=== PATIENT | female | born 1965 | race Caucasian/White ===

== ENCOUNTER 2017-03-12 20:28 | Inpatient (IN) | payer MEDICAID, OTHER ==
[~2017-03-12] VITALS: Ht 162.6 cm; Wt 82.3 kg
[~2017-03-12 20:28] MED LIST: LEVO.125 PO; NICO14T TD; OXYC1SOL5 PO; [UNRECOGNIZED DRUG - OTHER]
[2017-03-12 20:33] VITALS: BP 164/88; PULSE 73; RESP 20; TEMP 97.8; O2SAT 88
--- NOTE | 2017-03-12 21:12 | PD ---
HPI Chief Complaint: Respiratory Distress Time Seen by Provider: 20:55 Travel History International Travel<30 days: No Contact w/Intl Traveler<30days: No Traveled to known affect area: No History of Present Illness HPI The patient is a 51 year old female who presents to the [facility] emergency department with a history of shortness of breath that she reports began a few days ago. She reports that the shortness of breath is worse with exertion. She denies any worsening with lying down. She does however report that she has a history of congestive heart failure and has been off of all of her medicines for the last month and she has not established with a new primary care doctor since an insurance change. She reports that today she began have lower extremity edema. She denies any prior history of DVT or PE. She denies any prior history of myocardial infarction. She denies having any chest pain associated with this. She reports that she's had a dry cough. She denies having any fevers. She reports that she continues to smoke a half pack of cigarettes per day. She reports that she has been diagnosed with COPD in the past. The patient denies any neck pain, abdominal pain, vomiting, diarrhea, urinary symptoms, or neurologic symptoms. [facility] Past Medical History Narrative Medical The patient's past medical history is significant for hypertension, COPD, history of bronchitis, history of congestive heart failure. Hx Anticoagulant Therapy: Yes (ASPIRIN) Arthritis: Yes Cancer: No Cardiovascular Problems: Yes (CHF) Diabetes: No Diminished Hearing: No Endocrine: No Genitourinary: No Musculoskeletal: Yes (KNEE SURGERY; RIGHT ARM) Neurologic: No Psychiatric: No Reproductive: No Respiratory: Yes (COPD) Thyroid Disease: No Tetanus Vaccination: Unknown Influenza Vaccination: Yes ?: Not Menopausal: Yes Past Surgical History Narrative Surgical The patient's past surgical history is significant for knee surgery and right shoulder surgery. Pacemaker: No Other Surgery: Yes Social History Alcohol Use: No Tobacco Use: Yes (1/2 PACK PPD SINCE 14 YEARS OLD) Substance Use: No Allergies-Medications (Allergen,Severity, Reaction): Coded Allergies: No Known Allergies (Unverified , 03/12/17) Reported Meds & Prescriptions Reported Meds & Active Scripts Active No Active Prescriptions or Reported Medications Review of Systems Except as stated in HPI: all other systems reviewed are Neg General / Constitutional: No: Fever Eyes: No: Visual changes HENT: No: Headaches Cardiovascular: Positive: Dyspnea on exertion, Edema, No: Chest Pain or Discomfort Respiratory: Positive: Cough, Shortness of Breath Gastrointestinal: No: Nausea, Vomiting, Diarrhea, Abdominal Pain Genitourinary: No: Dysuria Musculoskeletal: No: Pain Skin: No Rash Neurologic: No: Weakness, Focal Abnormalities, Change in Mentation, Slurred Speech Psychiatric: No: Depression Endocrine: No: Polydipsia Hematologic/Lymphatic: No: Easy Bruising Physical Exam Narrative General: The patient is a well-developed well-nourished female in no acute distress, initial O2 saturations on room air 88%. The patient was placed on 2 L supplemental O2. Head and Neck exam: Head is normocephalic atraumatic. Eyes: EOMI, pupils are equal round and reactive to light. Nose: Midline septum with pink mucous membranes Mouth: Dentition unremarkable. Moist mucus membranes. Posterior oropharynx is not erythematous. No tonsillar hypertrophy. Uvula midline. Airway patent. Neck: No palpable lymphadenopathy. No nuchal rigidity. No thyromegaly. Cardiovascular: Regular rate and rhythm without murmurs, gallops, or rubs. Lungs: Expiratory wheezes are audible anteriorly and posteriorly with prolonged expiratory phase of breathing. She has accessory muscle use noted. No significant conversational dyspnea. No tripoding. No paroxysmal abdominal breathing. Abdomen: Soft, without tenderness to palpation in all 4 quadrants of the abdomen. No guarding, rebound, or rigidity. Normal bowel sounds are audible. No tenderness on palpation of McBurney's point Extremities: No clubbing or cyanosis. The patient has 1+ pitting edema bilateral lower extremities. 2+ pulses in all 4 extremities. No calf tenderness on palpation. Back: No spinous process tenderness to palpation. No costovertebral angle tenderness to palpation. Neurologic Exam: Grossly nonfocal. Skin Exam: No rash noted. Intact skin that is warm and dry. Data Data Last Documented VS Vital Signs Date Time Temp Pulse Resp B/P Pulse Ox O2 Delivery O2 Flow Rate FiO2 03/12/17 23:11 69 17 123/57 98 Nasal Cannula 2 03/12/17 20:33 97.8 Orders Complete Blood Count With Diff (03/12/17 21:04) Comprehensive Metabolic Panel (03/12/17 21:04) B-Type Natriuretic Peptide (03/12/17 21:04) D-Dimer (03/12/17 21:04) Magnesium (Mg) (03/12/17 21:04) Ckmb (Isoenzyme) Profile (03/12/17 21:04) Troponin I (03/12/17 21:04) Urinalysis - C+S If Indicated (03/12/17 21:04) Iv Access Insert/Monitor (03/12/17 21:04) Electrocardiogram (03/12/17 21:04) Ecg Monitoring (03/12/17 21:04) Oximetry (03/12/17 21:04) Oxygen Administration (03/12/17 21:04) Chest, Single Ap (03/12/17 21:04) Sodium Chloride 0.9% Flush (Ns Flush) (03/12/17 21:15) Methylprednisolone So Succ Inj (Solumedr (03/12/17 21:15) Albuterol-Ipratropium Neb (Duoneb Neb) (03/12/17 21:15) CKMB (03/12/17 21:10) CKMB% (03/12/17 21:10) Ct Pulmonary Angiogram (03/12/17 22:42) Sodium Chlorid 0.9% 500 Ml Inj (Ns 500 M (03/12/17 22:45) Iohexol 350 Inj (Omnipaque 350 Inj) (03/12/17 23:27) Urine Culture (03/12/17 23:10) Labs Laboratory Tests Test 03/12/17 03/12/17 21:10 23:10 White Blood Count 7.0 TH/MM3 Red Blood Count 4.56 MIL/MM3 Hemoglobin 15.4 GM/DL Hematocrit 46.2 % Mean Corpuscular Volume 101.3 FL Mean Corpuscular Hemoglobin 33.8 PG Mean Corpuscular Hemoglobin 33.3 % Concent Red Cell Distribution Width 16.5 % Platelet Count 182 TH/MM3 Mean Platelet Volume 8.3 FL Neutrophils (%) (Auto) 65.9 % Lymphocytes (%) (Auto) 22.8 % Monocytes (%) (Auto) 8.6 % Eosinophils (%) (Auto) 2.0 % Basophils (%) (Auto) 0.7 % Neutrophils # (Auto) 4.6 TH/MM3 Lymphocytes # (Auto) 1.6 TH/MM3 Monocytes # (Auto) 0.6 TH/MM3 Eosinophils # (Auto) 0.1 TH/MM3 Basophils # (Auto) 0.0 TH/MM3 CBC Comment DIFF FINAL Differential Comment D-Dimer Quantitative (PE/DVT) 0.67 MG/L FEU Sodium Level 138 MEQ/L Potassium Level 4.1 MEQ/L Chloride Level 95 MEQ/L Carbon Dioxide Level 38.5 MEQ/L Anion Gap 5 MEQ/L Blood Urea Nitrogen 19 MG/DL Creatinine 1.23 MG/DL Estimat Glomerular Filtration 46 ML/MIN Rate Random Glucose 127 MG/DL Calcium Level 8.5 MG/DL Magnesium Level 2.0 MG/DL Total Bilirubin 0.3 MG/DL Aspartate Amino Transf 21 U/L (AST/SGOT) Alanine Aminotransferase 27 U/L (ALT/SGPT) Alkaline Phosphatase 47 U/L Total Creatine Kinase 204 U/L Creatine Kinase MB 2.3 NG/ML Creatine Kinase MB % 1.1 % Troponin I LESS THAN 0.02 NG/ML B-Type Natriuretic Peptide 20 PG/ML Total Protein 6.8 GM/DL Albumin 3.1 GM/DL Urine Color YELLOW Urine Turbidity HAZY Urine pH 6.0 Urine Specific [place] 1.028 Urine Protein 300 mg/dL Urine Glucose (UA) NEG mg/dL Urine Ketones NEG mg/dL Urine Occult Blood SMALL Urine Nitrite NEG Urine Bilirubin NEG Urine Urobilinogen 2.0 MG/DL Urine Leukocyte Esterase TRACE Urine RBC 2 /hpf Urine WBC 9 /hpf Urine Squamous Epithelial 1 /hpf Cells Urine Mucus FEW /lpf Microscopic Urinalysis Comment CULTURE INDICATED MDM Medical Decision Making Medical Screen Exam Complete: Yes Emergency Medical Condition: Yes Medical Record Reviewed: Yes Interpretation(s) Last Impressions CT Angiography 03/12/172241 Signed Impressions: Service Date/Time: Sunday, March 12, 2017 23:24 - CONCLUSION: 1. No evidence of pulmonary embolism 2. No acute pulmonary infiltrates. Armaan Mcduffie MD Chest X-Ray 03/12/172103 Signed Impressions: Service Date/Time: Sunday, March 12, 2017 21:05 - CONCLUSION: No acute disease. Jhonatan Cherry MD Differential Diagnosis COPD exacerbation, versus pneumonia, versus congestive heart failure exacerbation, versus pulmonary embolus Narrative Course During the course of the patients emergency department visit, the patients history, examination, and differential diagnosis were reviewed with the patient. The patient had IV access obtained and blood work sent for analysis. The patient was placed on a quality assurance monitor final with oximetry and blood pressure monitoring. An EKG was ordered. The patient was initially provided the patient was given Solu-Medrol 125 mg IV, DuoNeb 3. The patients laboratory studies were reviewed and remarkable for a white count of 7, hemoglobin 15.4, platelets 182 with 8.6 monocytes, CMP is remarkable for chloride of 95, CO2 38.5, BUN 19, creatinine 1.23, glucose 127, CPK 204, MB percent 1.1, troponin I less than 0.02, BNP 20, d-dimer is 0.67, therefore CTA to rule out PE was ordered. Urinalysis shows 300 protein, small blood, trace leukocyte esterase, 9 RBCs. Radiology studies were reviewed and remarkable for a chest x-ray that shows no acute abnormality, CTA shows no evidence of PE. On reevaluation, the patient has had improvement in her symptoms, is resting comfortably, wheezing has improved, however the patient's O2 saturation on room air continues to be diminished down to 86% at the lowest. The patient was placed back on supplemental nasal cannula O2. The patient will be admitted to the hospital for continued treatment of a COPD exacerbation. The patients results were discussed with the patient, including the plan of care. I explained that further testing and/ or monitoring is indicated based on the patients history, examination, and/ or laboratory findings. Therefore, I recommended admission for additional evaluation. The patient expressed understanding and was agreeable with this plan. The patient was admitted to the hospital in stable condition and sent to a bed under the care of [facility]. Physician Communication Physician Communication The patient's case will be discussed with Dr. Subramanian regarding admission. Diagnosis Primary Impression: COPD exacerbation Additional Impression: Bronchitis Admitting Information Admitting Physician Requests: Admit Scripts No Active Prescriptions or Reported Meds Elaine Steiner MD Mar 12, 2017 21:11
[2017-03-12] MEDS ORDERED: methylPREDNISolone SOD SUCC 125 MG/2 ML VIAL IVP ONE (21:15)
[2017-03-12] MEDS ORDERED: SODIUM CHLORIDE 0.9% FLUSH 10 ML FLUSH IVF PRN (21:15)
[2017-03-12] MEDS: RESP: ALBUTEROL 2.5 MG/IPRATROPIUM 0.5 MG NEB (SCH) INH ×2 (21:36→21:37)
--- NOTE | 2017-03-12 21:36 | RADRPT ---
EXAM DATE/TIME: 03/12/2017 21:05 [facility] COMPARISON: No previous studies available for comparison. INDICATIONS : Short of breath. MEDICAL HISTORY : Chronic obstructive pulmonary disease. SURGICAL HISTORY : None. ENCOUNTER: Initial ACUITY: 1 day PAIN SCORE: 0/10 LOCATION: Bilateral chest FINDINGS: Cardiomegaly and hyperinflation. No consolidation or effusion. Plate and screw fixation of the right proximal humerus. CONCLUSION: No acute disease. Jhonatan Cherry MD on March 12, 2017 at 21:34 Board Certified Radiologist. This report was verified electronically.
[2017-03-12 21:49] LABS: AUTOMATED NEUTROPHIL # 4.6 TH/MM3 (1.8-7.7); BASOPHIL % 0.7 % (0.0-2.0); EOSINOPHIL # 0.1 TH/MM3 (0-0.4); HEMATOCRIT 46.2 % (35.0-46.0); HEMO FLAGS DIFF FINAL; LYMPH % 22.8 % (9.0-44.0); LYMPHOCYTE # 1.6 TH/MM3 (1.0-4.8); MEAN CELL VOLUME 101.3 FL (80.0-100.0); MEAN CORPUSCULAR HEMOGLOBIN 33.8 PG (27.0-34.0); MEAN CORPUSCULAR HGB CONC 33.3 % (32.0-36.0); MONO % 8.6 % (0.0-8.0); NEUT % 65.9 % (16.0-70.0); PLATELET COUNT 182 TH/MM3 (150-450); RED BLOOD COUNT 4.56 MIL/MM3 (4.00-5.30); RED CELL DISTRIBUTION WIDTH 16.5 % (11.6-17.2)
[2017-03-12 22:12] LABS: ANION GAP 5 MEQ/L (5-15); AST (GOT) 21 U/L (15-37); BICARBONATE 38.5 MEQ/L (21.0-32.0); BLOOD UREA NITROGEN 19 MG/DL (7-18); CHLORIDE 95 MEQ/L (98-107); GLOMERULAR FILTRATION RATE 46 ML/MIN (>89); POTASSIUM 4.1 MEQ/L (3.5-5.1); SODIUM (NA) 138 MEQ/L (136-145)
[2017-03-12 22:16] LABS: ALKALINE PHOSPHATASE 47 U/L (45-117); ALT (GPT) 27 U/L (10-53); CREATINE KINASE 204 U/L (26-192); TOTAL BILIRUBIN ADULT 0.3 MG/DL (0.2-1.0)
[2017-03-12 22:29] LABS: CKMB 2.3 NG/ML (0.5-3.6)
[2017-03-12] MEDS ORDERED: SODIUM CHLORID 0.9% 500 ML INJ 500 ML IV ONE (22:45)
[2017-03-12 23:11] VITALS: BP 123/57; PULSE 69; RESP 17; O2SAT 98
[2017-03-12 23:27] LABS: BLOOD, URINE SMALL (NEG); COMMENT (UR) CULTURE INDICATED; CULTURE IF INDICATED CULTURE INDICATED; GLUCOSE,URINE NEG (NEG); KETONE, URINE NEG (NEG); MUCUS URINE FEW /lpf (OCC); NITRITE,URINE NEG (NEG); SQUAMOUS EPITHELIAL CELL URINE 1 /hpf (0-5); URINE COLOR YELLOW (YELLW/STRAW)
[2017-03-12] MEDS ORDERED: IOHEXOL 350 MG/ML 10 ML VIAL (for RAD DIAG) IV ONE (23:27)
--- NOTE | 2017-03-12 23:45 | RADRPT ---
EXAM DATE/TIME: 03/12/2017 23:24 [facility] COMPARISON: No previous studies available for comparison. INDICATIONS : Short of breath. IV CONTRAST: 75 cc Omnipaque 350 (iohexol) IV RADIATION DOSE: 29.10 CTDIvol (mGy) MEDICAL HISTORY : Chronic obstructive pulmonary disease. Cardiovascular disease SURGICAL HISTORY : Right shoulder surgery. ENCOUNTER: Initial ACUITY: 4 - 6 days PAIN SCALE: 0/10 LOCATION: chest TECHNIQUE: Volumetric scanning of the chest was performed using a pulmonary embolism protocol MIP images were re constructed. Using automated exposure control and adjustment of the mA and/or kV according to patien t size, radiation dose was kept as low as reasonably achievable to obtain optimal diagnostic quality images. FINDINGS: PULMONARY ARTERIES: No filling defects are seen in the pulmonary arteries through the segmental level. LUNGS: There is no consolidation or pneumothorax . No concerning pulmonary nodule is visualized. There is a small bulla in the left upper lung. PLEURAE: There is no pleural thickening or pleural effusion. MEDIASTINUM: There is good visualization of the great vessels of the middle mediastinum. No evidence of mediastin al or hilar adenopathy/mass. MUSCULOSKELETAL: Within normal limits for patient age. MISCELLANEOUS: The visualized upper abdominal organs demonstrate no acute abnormality. CONCLUSION: 1. No evidence of pulmonary embolism 2. No acute pulmonary infiltrates. Armaan Mcduffie MD on March 12, 2017 at 23:43 Board Certified Radiologist. This report was verified electronically.
[2017-03-13] VITALS (10 sets, daily range): BP systolic 119–133; BP diastolic 60–71; PULSE 68–84; RESP 13–20; TEMP 97.7–98.6; O2SAT 92–97
[2017-03-13] MEDS ORDERED: RESP: ALBUTEROL 2.5 MG/IPRATROPIUM 0.5 MG NEB (PRN) NEB (01:00)
[2017-03-13] MEDS ORDERED: NALOXONE HCL 0.4 MG/ML AMP IV PRN (01:00)
[2017-03-13] MEDS ORDERED: SODIUM CHLORIDE 0.9% FLUSH 10 ML FLUSH IV FLUSH PRN (01:00)
--- NOTE | 2017-03-13 03:02 | HHI.HP ---
HPI Service [facility] Primary Care Physician No Primary Care Physician Admission Diagnosis copd exacerbation, hypoxia on room air Diagnoses: Chief Complaint: shortness of breath Travel History International Travel<30 Days: No Contact w/Intl Traveler <30 Da: No Traveled to Known Affected Are: No History of Present Illness The patient is a 51 year old female patient who denies prior medical history. In review of prior charting done, history of COPD as well as CHF, the patient denies either. Patient denies using home oxygen and nebulizer treatments. Patient presents to the [facility] emergency department for evaluation of shortness of breath. Patient reports the shortness of breath times one day. She reports that the shortness of breath is worse with exertion. She denies any worsening with lying down. Patient reported to the ER provider that she has been off of all of her medicines for the last month and she has not established with a new primary care doctor since an insurance change. Patient denies denies having any chest pain, cough, fevers, chills, nausea/ vomiting/diarrhea/constipation or dysuria She reports that she continues to smoke a half pack of cigarettes per day. Review of Systems ROS Limitations: Poor Historian Except as stated in HPI: all other systems reviewed are Neg Past Family Social History Past Medical History COPD per record patient denies, CHF per record although patient denies Past Surgical History right knee surgery and right shoulder surgery Reported Medications Denies home medications on a daily basis Allergies: Coded Allergies: No Known Allergies (Unverified , 03/12/17) Active Ordered Medications Current Medications Medications (Trade) Dose Ordered Sig/Robinson Route Start Time Stop Time Status Last Admin (NS Flush) 2 ml UNSCH PRN IV FLUSH 03/13/17 01:00 (NS Flush) 2 ml BID IV FLUSH 03/13/17 09:00 (Narcan Inj) 0.4 mg UNSCH PRN IV 03/13/17 01:00 Family History Denies family medical history including CAD, CVA, diabetes, thyroid disorder COPD or cancer Social History smokes 0.5 PPD since age 14 denies ETOH use or illicit drug use Physical Exam Vital Signs Vital Signs Date Time Temp Pulse Resp B/P Pulse Ox O2 Delivery O2 Flow Rate FiO2 03/13/17 02:46 68 18 121/68 93 Nasal Cannula 4 03/13/17 01:12 71 13 121/69 92 Nasal Cannula 4 03/12/17 23:11 69 17 123/57 98 Nasal Cannula 2 03/12/17 20:47 78 19 94 Nasal Cannula 2 03/12/17 20:33 97.8 73 20 164/88 88 Room Air Physical Exam GENERAL: This is an obese, well-developed patient, in no apparent distress. SKIN: No rashes, ecchymoses or lesions. Cool and dry. HEAD: Atraumatic. Normocephalic. No temporal or scalp tenderness. EYES: Extraocular motions intact. No scleral icterus. No injection or drainage. CARDIOVASCULAR: Regular rate and rhythm without murmurs, gallops, or rubs. RESPIRATORY: Clear to auscultation. Breath sounds equal bilaterally. No wheezes , rales, or rhonchi. GASTROINTESTINAL: Abdomen soft, non-tender, nondistended. No hepato-splenomegaly , or palpable masses. No guarding. MUSCULOSKELETAL: Extremities without clubbing, cyanosis, or edema. No joint tenderness, effusion, or edema noted. No calf tenderness. Negative Homans sign bilaterally. NEUROLOGICAL: Awake and alert.Motor and sensory grossly within normal limits. 4 out of 5 muscle strength in all muscle groups. Normal speech. Laboratory Laboratory Tests Test 03/12/17 03/12/17 21:10 23:10 White Blood Count 7.0 Red Blood Count 4.56 Hemoglobin 15.4 Hematocrit 46.2 Mean Corpuscular Volume 101.3 Mean Corpuscular Hemoglobin 33.8 Mean Corpuscular Hemoglobin 33.3 Concent Red Cell Distribution Width 16.5 Platelet Count 182 Mean Platelet Volume 8.3 Neutrophils (%) (Auto) 65.9 Lymphocytes (%) (Auto) 22.8 Monocytes (%) (Auto) 8.6 Eosinophils (%) (Auto) 2.0 Basophils (%) (Auto) 0.7 Neutrophils # (Auto) 4.6 Lymphocytes # (Auto) 1.6 Monocytes # (Auto) 0.6 Eosinophils # (Auto) 0.1 Basophils # (Auto) 0.0 CBC Comment DIFF FINAL Differential Comment D-Dimer Quantitative (PE/DVT) 0.67 Sodium Level 138 Potassium Level 4.1 Chloride Level 95 Carbon Dioxide Level 38.5 Anion Gap 5 Blood Urea Nitrogen 19 Creatinine 1.23 Estimat Glomerular Filtration 46 Rate Random Glucose 127 Calcium Level 8.5 Magnesium Level 2.0 Total Bilirubin 0.3 Aspartate Amino Transf 21 (AST/SGOT) Alanine Aminotransferase 27 (ALT/SGPT) Alkaline Phosphatase 47 Total Creatine Kinase 204 Creatine Kinase MB 2.3 Creatine Kinase MB % 1.1 Troponin I LESS THAN 0.02 B-Type Natriuretic Peptide 20 Total Protein 6.8 Albumin 3.1 Urine Color YELLOW Urine Turbidity HAZY Urine pH 6.0 Urine Specific [place] 1.028 Urine Protein 300 Urine Glucose (UA) NEG Urine Ketones NEG Urine Occult Blood SMALL Urine Nitrite NEG Urine Bilirubin NEG Urine Urobilinogen 2.0 Urine Leukocyte Esterase TRACE Urine RBC 2 Urine WBC 9 Urine Squamous Epithelial 1 Cells Urine Mucus FEW Microscopic Urinalysis Comment CULTURE INDICATED Date/Time Procedure Status Source Growth 03/12/17 23:10 Urine Culture Worksheet Urine Clean Catch Pending Result Diagram: 03/12/17210903/12/172109 Imaging Last Impressions CT Angiography 03/12/172241 Signed Impressions: Service Date/Time: Sunday, March 12, 2017 23:24 - CONCLUSION: 1. No evidence of pulmonary embolism 2. No acute pulmonary infiltrates. Armaan Mcduffie MD Chest X-Ray 03/12/172103 Signed Impressions: Service Date/Time: Sunday, March 12, 2017 21:05 - CONCLUSION: No acute disease. Jhonatan Cherry MD Assessment and Plan Problem List: (1) COPD exacerbation ICD Code: J44.1 Status: Acute (2) Hypoxia ICD Code: R09.02 Status: Acute Assessment and Plan The patient is a 51 year old female patient who denies prior medical history. In review of prior charting done, history of COPD as well as CHF, the patient denies either. Patient denies using home oxygen and nebulizer treatments. Patient presents to the [facility] emergency department for evaluation of shortness of breath. Patient reports the shortness of breath times one day. Hypoxia- 88% on room air Acute on chronic COPD exacerbation Solu-Medrol 125 mg IV x 1 in ER Do nebs every 6 hours scheduled and every 2 hours when necessary Patient will likely need nebulizer treatments at discharge consult case management for assistance Possible sleep apnea recommend outpatient pulmonology evaluation and follow up D-dimer elevated 0.67 CT angiogram chest reviewed and negative for pulmonary embolism tobacco abuse- counselled encouraged to abstain DVT prophylaxis with Lovenox Discussed with the ER provider, nursing and patient Written by Liana Ruiz, acting as scribe for Dr. Subramanian on 03/13/17 at 03: 14. This note was transcribed by scribe [Liana Ruiz]. I, Dr. Cathy Subramanian personally performed the history, physical exam, and medical decision making; and confirmed the accuracy of the information in the transcribed note. Authenticated by Dr. Cathy Sburamanian on 03/13/17 at 03:14. Liana Ruiz Mar 13, 2017 03:02 Cathy Subramanian MD Mar 13, 2017 07:00
[2017-03-13] MEDS: RESP: ALBUTEROL 2.5 MG/IPRATROPIUM 0.5 MG NEB (SCH) NEB ×4 (03:03→21:33)
--- NOTE | 2017-03-13 08:45 | EKG ---
Date Performed: 03/12/2017 Time Performed: 21:23:12 PTAGE: 51 years EKG: Sinus rhythm NONSPECIFIC T-WAVE ABNORMALITY ABNORMAL ECG PREVIOUS TRACING : 03/12/2015 22.49 No significant change from previous tracing noted. DOCTOR: Robi Russo Interpretating Date/Time 03/13/2017 08:44:29
[2017-03-13] MEDS: ENOXAPARIN SODIUM 40 MG/0.4 ML SYRINGE SQ SCH (09:34)
[2017-03-13] MEDS: SODIUM CHLORIDE 0.9% FLUSH 10 ML FLUSH IV FLUSH SCH ×2 (09:36→22:38)
[2017-03-13] MEDS: LEVOTHYROXINE SODIUM 50 MCG TAB PO SCH (12:25)
[2017-03-13] MEDS ORDERED: NEBULIZER1 MI1 (14:23)
[2017-03-13] MEDS ORDERED: ALBUAER3 INH (14:23)
[2017-03-13] MEDS ORDERED: IPRASOL INH (14:23)
--- NOTE | 2017-03-13 14:31 | HHI.PR ---
Subjective Remarks Follow-up for COPD exacerbation. The patient states that she's breathing much better currently and has no more shortness of breath. However, she is currently on 4 L O2, not on oxygen at home. She is out of her medications for 1 month. She states she was previously on rescue inhaler, blood pressure medications, Lasix. She does recall being on thyroid medication, unknown dose. She does continue to smoke. Objective Vitals Vital Signs Date Time Temp Pulse Resp B/P Pulse Ox O2 Delivery O2 Flow Rate FiO2 03/13/17 12:13 98.4 84 18 121/61 97 03/13/17 09:06 92 Nasal Cannula 4.00 03/13/17 07:17 97.7 72 18 133/71 96 03/13/17 04:32 98.6 73 20 121/64 94 03/13/17 03:04 93 Nasal Cannula 3.00 03/13/17 02:46 68 18 121/68 93 Nasal Cannula 4 03/13/17 01:12 71 13 121/69 92 Nasal Cannula 4 03/12/17 23:11 69 17 123/57 98 Nasal Cannula 2 03/12/17 20:47 78 19 94 Nasal Cannula 2 03/12/17 20:33 97.8 73 20 164/88 88 Room Air I/O 03/12/17 03/12/17 03/12/17 03/13/17 03/13/17 03/13/17 07:00 15:00 23:00 07:00 15:00 23:00 Intake Total 200 ml Balance 200 ml Intake Oral 200 ml Result Diagram: 03/12/17210903/12/172109 Imaging Last Impressions CT Angiography 03/12/172 Signed Impressions: Service Date/Time: Sunday, March 12, 2017 23:24 - CONCLUSION: 1. No evidence of pulmonary embolism 2. No acute pulmonary infiltrates. Armaan Mcduffie MD Chest X-Ray 03/12/172103 Signed Impressions: Service Date/Time: Sunday, March 12, 2017 21:05 - CONCLUSION: No acute disease. Jhonatan Cherry MD Objective Remarks GENERAL: Well-developed well-nourished. In no acute distress. Comfortable on 4 L O2. SKIN: Warm and dry. No lesions noted. HEENT: Normocephalic. Pupils equal and round. Mucous membranes pink and moist. CARDIOVASCULAR: Regular rate and rhythm. No murmur appreciated. RESPIRATORY: No accessory muscle use. And expiratory wheezing bilaterally. GASTROINTESTINAL: Abdomen soft, non-tender, nondistended. Bowel sounds x4. MUSCULOSKELETAL: No obvious deformities. No clubbing or cyanosis. No edema. NEUROLOGICAL: Awake and alert. No focal neurological deficits. Moves upper and lower extremities spontaneously. Normal speech. PSYCHIATRIC: Appropriate mood and affect; insight and judgment normal. A/P Problem List: (1) COPD exacerbation ICD Code: J44.1 Status: Acute (2) Hypoxia ICD Code: R09.02 Status: Acute Assessment and Plan The patient is a 51 year old female patient who denies prior medical history. In review of prior charting done, history of COPD as well as CHF, the patient denies either. Patient denies using home oxygen and nebulizer treatments. Patient presented to the [facility] emergency department for evaluation of shortness of breath. Patient reports the shortness of breath times one day. Acute respiratory failure with Hypoxia- 88% on room air Acute exacerbation of chronic COPD Tobacco abuse Imaging reviewed: Chest x-ray with no acute process. Pulmonary angiogram with no PE or pulmonary infiltrates. Labs reviewed: Mildly elevated d-dimer at 0.67. BNP 20. IV Solu-Medrol Scheduled and as needed nebs Azithromycin Supplemental O2 as needed, titrate as tolerated Counseled on tobacco cessation Patient will likely need nebulizer treatments at discharge, consulted case management for assistance Hypothyroidism: Noncompliant with medications. TSH 61.8. Start levothyroxine at 50 g daily. Abnormal UA: UA borderline, rule out infection. No specific urinary complaints. Follow-up urine culture. JERED: Creatinine 1.23, previously 0.7 in 2014. Gentle IVF. Follow-up BMP. DVT prophylaxis with Lovenox Discharge Planning Patient is clinically improved, however still requiring a lot of oxygen. Possible walk test in the a.m. Suraj Contreras Mar 13, 2017 14:31 Deepali Mireles MD Mar 13, 2017 15:50
[2017-03-13] MEDS ORDERED: SODIUM CHLOR 0.9% 1000 ML INJ 1,000 ML IV SCH (15:00)
[2017-03-13] MEDS: AZITHROMYCIN 250 MG TAB PO SCH (17:15)
[2017-03-13] MEDS: methylPREDNISolone SOD SUCC 40 MG/1 ML VIAL IV PUSH SCH ×2 (17:15→22:39)
[2017-03-14] VITALS (11 sets, daily range): BP systolic 114–138; BP diastolic 55–78; PULSE 70–92; RESP 18–21; TEMP 97.8–99.3; O2SAT 92–97
[2017-03-14 05:45] LABS: AUTOMATED NEUTROPHIL # 9.6 TH/MM3 (1.8-7.7); BASOPHIL % 0.5 % (0.0-2.0); EOSINOPHIL % 0.1 % (0.0-4.0); HEMATOCRIT 48.3 % (35.0-46.0); LYMPH % 4.7 % (9.0-44.0); LYMPHOCYTE # 0.5 TH/MM3 (1.0-4.8); MEAN CELL VOLUME 101.1 FL (80.0-100.0); MEAN CORPUSCULAR HEMOGLOBIN 34.3 PG (27.0-34.0); MEAN CORPUSCULAR HGB CONC 33.9 % (32.0-36.0); MONO % 1.6 % (0.0-8.0); NEUT % 93.1 % (16.0-70.0); PLATELET COUNT 179 TH/MM3 (150-450); RED BLOOD COUNT 4.78 MIL/MM3 (4.00-5.30); RED CELL DISTRIBUTION WIDTH 16.5 % (11.6-17.2); WHITE BLOOD COUNT 10.3 TH/MM3 (4.0-11.0)
[2017-03-14 05:49] LABS: HEMO FLAGS AUTO DIFF
[2017-03-14] MEDS: methylPREDNISolone SOD SUCC 40 MG/1 ML VIAL IV PUSH SCH ×3 (05:49→20:14)
[2017-03-14] MEDS: LEVOTHYROXINE SODIUM 50 MCG TAB PO SCH (05:49)
[2017-03-14 05:53] LABS: BICARBONATE 36.7 MEQ/L (21.0-32.0); POTASSIUM 4.8 MEQ/L (3.5-5.1)
[2017-03-14] MEDS: RESP: ALBUTEROL 2.5 MG/IPRATROPIUM 0.5 MG NEB (SCH) NEB ×3 (07:24→20:12)
[2017-03-14 07:36] LABS: BANDS 3 % (0-6); METAMYELOCYTES 1 % (0-1); MYELOCYTES 1 % (0-0); NEUTROPHIL # MANUAL DIFF 9.6 TH/MM3 (1.8-7.7); PLATELET ESTIMATE SMEAR NORMAL (NORMAL); POLYS (SEG NEUTROPHILS) 88 % (16-70); SCAN/DIFF FINAL DIFF MANUAL; WBC DIFF SAMPLE 100
[2017-03-14 07:37] LABS: PLATELET MORPHOLOGY ENLARGED (NORMAL)
[2017-03-14] MEDS: SODIUM CHLORIDE 0.9% FLUSH 10 ML FLUSH IV FLUSH SCH ×2 (09:14→20:15)
[2017-03-14] MEDS: AZITHROMYCIN 250 MG TAB PO SCH (09:14)
[2017-03-14] MEDS: ENOXAPARIN SODIUM 40 MG/0.4 ML SYRINGE SQ SCH (09:15)
--- NOTE | 2017-03-14 10:04 | HHI.PR ---
Subjective Remarks Follow-up for COPD exacerbation. The patient feels good today. She denies any shortness of breath or wheezing. She states she has been able to ambulate to the restroom without any shortness of breath. She denies any chest pain, nausea , vomiting. Tolerating diet. However, she is on 4 L of oxygen and not on any oxygen at home. Objective Vitals Vital Signs Date Time Temp Pulse Resp B/P Pulse Ox O2 Delivery O2 Flow Rate FiO2 03/14/17 08:00 97.9 72 21 120/73 97 03/14/17 07:44 92 Nasal Cannula 4.00 03/14/17 04:40 70 18 127/75 93 03/14/17 00:23 98.3 92 20 119/69 92 03/13/17 21:37 92 Nasal Cannula 4.00 03/13/17 21:30 73 03/13/17 19:28 98.3 74 20 128/62 92 03/13/17 12:13 98.4 84 18 121/61 97 I/O 03/13/17 03/13/17 03/13/17 03/14/17 03/14/17 03/14/17 07:00 15:00 23:00 07:00 15:00 23:00 Intake Total 200 ml Balance 200 ml Intake Oral 200 ml # Voids 1 Result Diagram: 03/14/17 0504 03/14/17 [address] Angiography 03/12/172 Signed Impressions: Service Date/Time: Sunday, March 12, 2017 23:24 - CONCLUSION: 1. No evidence of pulmonary embolism 2. No acute pulmonary infiltrates. Armaan Mcduffie MD Chest X-Ray 03/12/172103 Signed Impressions: Service Date/Time: Sunday, March 12, 2017 21:05 - CONCLUSION: No acute disease. Jhonatan Cherry MD Objective Remarks GENERAL: Well-developed well-nourished. In no acute distress. Comfortable on 4 L O2. SKIN: Warm and dry. No lesions noted. HEENT: Normocephalic. Pupils equal and round. Mucous membranes pink and moist. CARDIOVASCULAR: Regular rate and rhythm. No murmur appreciated. RESPIRATORY: No accessory muscle use. Expiratory wheezing bilaterally. GASTROINTESTINAL: Abdomen soft, non-tender, nondistended. Bowel sounds x4. MUSCULOSKELETAL: No obvious deformities. No clubbing or cyanosis. No edema. NEUROLOGICAL: Awake and alert. No focal neurological deficits. Moves upper and lower extremities spontaneously. Normal speech. PSYCHIATRIC: Appropriate mood and affect; insight and judgment normal. A/P Problem List: (1) COPD exacerbation ICD Code: J44.1 Status: Acute (2) Hypoxia ICD Code: R09.02 Status: Acute (3) COPD (chronic obstructive pulmonary disease) ICD Code: J44.9 Status: Acute Assessment and Plan The patient is a 51 year old female patient who denies prior medical history. In review of prior charting done, history of COPD as well as CHF, the patient denies either. Patient denies using home oxygen and nebulizer treatments. Patient presented to the [facility] emergency department for evaluation of shortness of breath. Patient reports the shortness of breath times one day. Acute respiratory failure with Hypoxia- 88% on room air Acute exacerbation of chronic COPD Tobacco abuse Imaging reviewed: Chest x-ray with no acute process. Pulmonary angiogram with no PE or pulmonary infiltrates. Labs reviewed: Mildly elevated d-dimer at 0.67. BNP 20. IV Solu-Medrol, taper as tolerated Scheduled and as needed nebs Azithromycin Supplemental O2 as needed, titrate as tolerated Counseled on tobacco cessation Patient will likely need nebulizer and oxygen at discharge, consulted case management for assistance O2 walk test Start Symbicort Hypothyroidism: Noncompliant with medications. TSH 61.8. Started levothyroxine at 50 g daily. Abnormal UA: UA borderline, rule out infection. No specific urinary complaints. Follow-up urine culture. JERED: Creatinine 1.23, previously 0.7 in 2014. Gentle IVF. Follow-up creatinine improved, DC IVF. DVT prophylaxis with Lovenox Written by Suraj Contreras, acting as scribe for Dr. Mireles on 03/14/17 at 10:04. This note was transcribed by [email or web address] RAM. I, Dr. Deepali Mireles personally performed the history, physical exam, and medical decision making; and confirmed the accuracy of the information in the transcribed note. Authenticated by Dr. Deepali Mireles on 03/14/17 at 10:04. Discharge Planning Patient met inpatient criteria on 03/13/17. Awaiting further clinical improvement, not ready for discharge yet. Problem Qualifiers (1) COPD (chronic obstructive pulmonary disease): Qualified Code: J44.9 - Chronic obstructive pulmonary disease, unspecified COPD type Suraj Contreras Mar 14, 2017 10:04 Deepali Mireles MD Mar 14, 2017 14:40
[2017-03-14] MEDS ORDERED: OXYGENTANK NAS.CANULA ×2 (12:02→14:18)
[2017-03-14] MEDS: BUDESONIDE-FORMOTEROL 80/4.5 MCG INHALER INH SCH ×2 (12:54→21:00)
[2017-03-15] VITALS (14 sets, daily range): BP systolic 123–128; BP diastolic 74–85; PULSE 64–74; RESP 20; TEMP 98.2–98.7; O2SAT 93–96
[2017-03-15] MEDS: LEVOTHYROXINE SODIUM 50 MCG TAB PO SCH (05:37)
[2017-03-15] MEDS: methylPREDNISolone SOD SUCC 40 MG/1 ML VIAL IV PUSH SCH ×2 (05:38→14:46)
--- NOTE | 2017-03-15 07:18 | HHI.PR ---
Subjective Remarks Feels much better. No much wheezing. No n/v/d/c. No cough. Patient needs O2 at home, failed O2 test/ CM following for DC plan Objective Vitals Vital Signs Date Time Temp Pulse Resp B/P Pulse Ox O2 Delivery O2 Flow Rate FiO2 03/15/17 05:06 67 03/15/17 04:01 98.3 69 20 123/74 96 03/15/17 00:01 98.2 72 20 127/80 94 03/14/17 23:01 70 03/14/17 20:01 98.1 76 20 138/73 95 03/14/17 19:41 92 Nasal Cannula 2.00 03/14/17 19:01 74 03/14/17 17:50 97.8 74 19 126/78 93 03/14/17 15:22 99.3 74 18 114/58 93 03/14/17 11:59 99.0 74 20 115/55 95 03/14/17 08:00 97.9 72 21 120/73 97 03/14/17 07:44 92 Nasal Cannula 4.00 I/O 03/14/17 03/14/17 03/14/17 03/15/17 03/15/17 03/15/17 07:00 15:00 23:00 07:00 15:00 23:00 Intake Total 120 ml 667 ml Balance 120 ml 667 ml Intake Oral 120 ml 480 ml IV Total 187 ml # Voids 2 2 # Bowel Movements 0 0 Result Diagram: 03/14/17 0504 03/14/17 [address] Angiography 03/12/17 2242 Signed Impressions: Service Date/Time: Sunday, March 12, 2017 23:24 - CONCLUSION: 1. No evidence of pulmonary embolism 2. No acute pulmonary infiltrates. Armaan Mcduffie MD Chest X-Ray 03/12/172103 Signed Impressions: Service Date/Time: Sunday, March 12, 2017 21:05 - CONCLUSION: No acute disease. Jhonatan Cherry MD Objective Remarks GENERAL: Well-developed well-nourished. Appears in not acute distress. SKIN: Warm and dry. No lesions noted. HEENT: Normocephalic. Pupils equal and round. Mucous membranes pink and moist. CARDIOVASCULAR: Regular rate and rhythm. No murmur appreciated. RESPIRATORY: No accessory muscle use. Expiratory wheezing bilaterally improved. GASTROINTESTINAL: Abdomen soft, non-tender, nondistended. Bowel sounds x4. MUSCULOSKELETAL: No obvious deformities. No clubbing or cyanosis. No edema. NEUROLOGICAL: Awake and alert. No focal neurological deficits. Moves upper and lower extremities spontaneously. Normal speech. PSYCHIATRIC: Appropriate mood and affect; insight and judgment normal. A/P Problem List: (1) COPD exacerbation ICD Code: J44.1 Status: Acute (2) Hypoxia ICD Code: R09.02 Status: Acute (3) COPD (chronic obstructive pulmonary disease) ICD Code: J44.9 Status: Acute Assessment and Plan The patient is a 51 year old female patient who denies prior medical history. In review of prior charting done, history of COPD as well as CHF, the patient denies either. Patient denies using home oxygen and nebulizer treatments. Patient presented to the [facility] emergency department for evaluation of shortness of breath. Patient reports the shortness of breath times one day. Acute respiratory failure with Hypoxia- 88% on room air Acute exacerbation of chronic COPD Tobacco abuse Imaging reviewed: Chest x-ray with no acute process. Pulmonary angiogram with no PE or pulmonary infiltrates. Labs reviewed: Mildly elevated d-dimer at 0.67. BNP 20. IV Solu-Medrol, taper as tolerated Scheduled and as needed nebs Azithromycin Supplemental O2 as needed, titrate as tolerated Counseled on tobacco cessation Patient will likely need nebulizer and oxygen at discharge, consulted case management for assistance O2 walk test Start Symbicort Hypothyroidism: Noncompliant with medications. TSH 61.8. Started levothyroxine at 50 g daily. Abnormal UA: UA borderline, rule out infection. No specific urinary complaints. Follow-up urine culture. JERED: Creatinine 1.23, previously 0.7 in 2015. Gentle IVF. Follow-up creatinine improved, DC IVF. DVT prophylaxis with Lovenox DC plan: Patient is clinically improved, however still requiring oxygen. Walk test failed, require O2 at home, CM following for DC plan Problem Qualifiers (1) COPD (chronic obstructive pulmonary disease): Qualified Code: J44.9 - Chronic obstructive pulmonary disease, unspecified COPD type Deepali Mireles MD Mar 15, 2017 07:18
[2017-03-15] MEDS ORDERED: OXYGENTANK NAS.CANULA (07:46)
[2017-03-15] MEDS ORDERED: PRED10PA PO (07:46)
--- NOTE | 2017-03-15 07:46 | HHI.DS ---
Discharge Summary Admission Date Mar 14, 2017 at 10:01 Discharge Date: Mar 15, 2017 Admitting Diagnosis copd exacerbation, hypoxia on room air (1) COPD exacerbation ICD Code: J44.1 (2) Hypoxia ICD Code: R09.02 Diagnosis: Principal Procedures none Brief History - From Admission The patient is a 51 year old female patient who denies prior medical history. In review of prior charting done, history of COPD as well as CHF, the patient denies either. Patient denies using home oxygen and nebulizer treatments. Patient presents to the [facility] emergency department for evaluation of shortness of breath. Patient reports the shortness of breath times one day. She reports that the shortness of breath is worse with exertion. She denies any worsening with lying down. Patient reported to the ER provider that she has been off of all of her medicines for the last month and she has not established with a new primary care doctor since an insurance change. Patient denies denies having any chest pain, cough, fevers, chills, nausea/ vomiting/diarrhea/constipation or dysuria She reports that she continues to smoke a half pack of cigarettes per day. CBC/BMP: 03/14/17 0504 03/14/17 0504 Significant Findings Laboratory Tests Test 03/12/17 03/12/17 03/13/17 03/14/17 21:10 23:10 08:45 05:04 Hemoglobin 15.4 GM/DL 16.4 GM/DL (11.6-15.3) (11.6-15.3) Hematocrit 46.2 % 48.3 % (35.0-46.0) (35.0-46.0) Mean Corpuscular Volume 101.3 FL 101.1 FL (80.0-100.0) (80.0-100.0) Monocytes (%) (Auto) 8.6 % (0.0-8.0) D-Dimer Quantitative (PE/DVT) 0.67 MG/L FEU (0.00-0.50) Chloride Level 95 MEQ/L 95 MEQ/L (98-107) (98-107) Carbon Dioxide Level 38.5 MEQ/L 36.7 MEQ/L (21.0-32.0) (21.0-32.0) Blood Urea Nitrogen 19 MG/DL (7-18) Creatinine 1.23 MG/DL (0.50-1.00) Estimat Glomerular Filtration 46 ML/MIN (>89) 58 ML/MIN (>89) Rate Random Glucose 127 MG/DL 127 MG/DL (74-106) (74-106) Total Creatine Kinase 204 U/L (26-192) Troponin I LESS THAN 0.02 NG/ML (0.02-0.05) Albumin 3.1 GM/DL (3.4-5.0) Urine Turbidity HAZY (CLEAR) Urine Protein 300 mg/dL (NEG-TRACE) Urine Occult Blood SMALL (NEG) Urine Leukocyte Esterase TRACE (NEG) Urine WBC 9 /hpf (0-5) Urine Mucus FEW /lpf (OCC) Thyroid Stimulating Hormone 61.800 uIU/ML 3rd Gen (0.358-3.740) Mean Corpuscular Hemoglobin 34.3 PG (27.0-34.0) Neutrophils (%) (Auto) 93.1 % (16.0-70.0) Lymphocytes (%) (Auto) 4.7 % (9.0-44.0) Neutrophils # (Auto) 9.6 TH/MM3 (1.8-7.7) Lymphocytes # (Auto) 0.5 TH/MM3 (1.0-4.8) Neutrophils % (Manual) 88 % (16-70) Lymphocytes % 4 % (9-44) Neutrophils # (Manual) 9.6 TH/MM3 (1.8-7.7) Myelocytes 1 % (0-0) Platelet Morphology Comment ENLARGED (NORMAL) Anion Gap 4 MEQ/L (5-15) Imaging Last Impressions CT Angiography 03/12/172 Signed Impressions: Service Date/Time: Sunday, March 12, 2017 23:24 - CONCLUSION: 1. No evidence of pulmonary embolism 2. No acute pulmonary infiltrates. Armaan Mcduffie MD Chest X-Ray 03/12/174 Signed Impressions: Service Date/Time: Sunday, March 12, 2017 21:05 - CONCLUSION: No acute disease. Jhonatan Cherry MD PE at Discharge GENERAL: Well-developed well-nourished. Appears in not acute distress. SKIN: Warm and dry. No lesions noted. HEENT: Normocephalic. Pupils equal and round. Mucous membranes pink and moist. CARDIOVASCULAR: Regular rate and rhythm. No murmur appreciated. RESPIRATORY: No accessory muscle use. Expiratory wheezing bilaterally improved. GASTROINTESTINAL: Abdomen soft, non-tender, nondistended. Bowel sounds x4. MUSCULOSKELETAL: No obvious deformities. No clubbing or cyanosis. No edema. NEUROLOGICAL: Awake and alert. No focal neurological deficits. Moves upper and lower extremities spontaneously. Normal speech. PSYCHIATRIC: Appropriate mood and affect; insight and judgment normal. Hospital Course The patient is a 51 year old female patient who denies prior medical history. In review of prior charting done, history of COPD as well as CHF, the patient denies either. Patient denies using home oxygen and nebulizer treatments. Patient presented to the [facility] emergency department for evaluation of shortness of breath. Patient reports the shortness of breath times one day. Acute respiratory failure with Hypoxia- 88% on room air Acute exacerbation of chronic COPD Tobacco abuse Imaging reviewed: Chest x-ray with no acute process. Pulmonary angiogram with no PE or pulmonary infiltrates. Labs reviewed: Mildly elevated d-dimer at 0.67. BNP 20. IV Solu-Medrol, taper as tolerated Scheduled and as needed nebs Azithromycin Supplemental O2 as needed, titrate as tolerated Counseled on tobacco cessation Patient will likely need nebulizer and oxygen at discharge, consulted case management for assistance O2 walk test Start Symbicort Hypothyroidism: Noncompliant with medications. TSH 61.8. Started levothyroxine at 50 g daily. Abnormal UA: UA borderline, rule out infection. No specific urinary complaints. Follow-up urine culture. JERED: Creatinine 1.23, previously 0.7 in 2015. Gentle IVF. Follow-up creatinine improved, DC IVF. DVT prophylaxis with Lovenox DC plan: Patient is clinically improved, however still requiring oxygen. Failed O2 walking test, require O2 at home, CM following for DC plan. Improving, DC home in stable condition to followup as OP with PCP and consultants. Pt Condition on Discharge: Stable Discharge Disposition: Disch w/ Home Health Serv Discharge Time: > 30 minutes Discharge Instructions DIET: Follow Instructions for: Heart Healthy Diet Activities you can perform: Regular-No Restrictions Follow up Referrals: PCP Follow-up - 3-5 Days Pulmonology - 2 Weeks New Medications: Albuterol 8.5 GM Inh (Proair Hfa 8.5 GM Inh) 90 Mcg/Act Aer 2 PUFF INH Q4-6H 108 mcg/actuation PRN SHORTNESS OF BREATH #1 Ref 0 INHALER Ipratropium-Albuterol Neb (Duoneb) 0.5-2.5 Mg/3 Ml Neb 1 NEBULE INH Q6HR NEB Breathing Treatment #120 Ref 0 NEBULE Nebulizer (Nebulizer) 1 Mis Mis 1 EA .ROUTE DIRECTED Breathing Treatment #1 Ref 0 EA Oxygen tank (Oxygen tank) 1 Ea Tank 2 LITER JORGE.CANULA CONTINUOUS Oxygen Concentrator Portable Gaseous 2 L/min via Nasal Cannula Continuous For 99 months HYPOXEMIA PREVENTION #2 CYLINDER Prednisone (21) 10 mg tab Dose Pack (Prednisone (21) 10 mg tab Dose Pack) 10 Mg Pack 10 MG PO DIRECTED Inflammation #1 Ref 0 DSPK Deepali Mireles MD Mar 15, 2017 07:46
--- NOTE | 2017-03-15 07:47 | HHI.FF ---
Face to Face Verification Diagnosis: (1) Comminuted fracture of right humerus (2) Bronchitis (3) COPD (chronic obstructive pulmonary disease) (4) Hypoxia (5) COPD exacerbation Physical Therapy Order: Evaluate and Treat Home Health Nursing Order: Medical education Signs/symptoms of disease process Oxygen administration education Medication education-adverse effect Nursing assessment with vital signs I have seen patient Mitzi Abbasi on 03/15/17. My clinical findings support the need for the requested home health care services because: Ltd mobility - disease progression Patient has SOB I certify that my clinical findings support that this patient is homebound because: Post-op weakness Hx COPD- exertion dyspnea/weakness Deepali Mireles MD Mar 15, 2017 07:47
[2017-03-15] MEDS: RESP: ALBUTEROL 2.5 MG/IPRATROPIUM 0.5 MG NEB (SCH) NEB ×2 (08:13→13:45)
[2017-03-15] MEDS: ENOXAPARIN SODIUM 40 MG/0.4 ML SYRINGE SQ SCH (08:28)
[2017-03-15] MEDS: AZITHROMYCIN 250 MG TAB PO SCH (08:28)
[2017-03-15] MEDS ORDERED: PNEUMOCOCCAL POLYVALENT INJ 25 MCG/0.5 ML SYR IM ONE (09:00)
[2017-03-15] MEDS: SODIUM CHLORIDE 0.9% FLUSH 10 ML FLUSH IV FLUSH SCH (09:46)
[2017-03-15] MEDS: BUDESONIDE-FORMOTEROL 80/4.5 MCG INHALER INH SCH (09:46)
[2017-03-15] MEDS ORDERED: INFLUENZA VIRUS VACCINE (QUADRIVALENT) 0.5 ML SYR IM ONE ×2 (10:00)
--- NOTE | 2017-03-16 14:24 | HHI.FF ---
Face to Face Verification Diagnosis: (1) Bronchitis (2) COPD (chronic obstructive pulmonary disease) (3) Hypoxia (4) COPD exacerbation Home Health Nursing Order: Medical education Signs/symptoms of disease process Oxygen administration education Medication education-adverse effect Nursing assessment with vital signs I have seen patient Mitzi Abbasi on 03/16/17. My clinical findings support the need for the requested home health care services because: Ltd mobility - disease progression Patient has SOB I certify that my clinical findings support that this patient is homebound because: Post-op weakness Impaired cognitive ability/safety Hx COPD- exertion dyspnea/weakness Deepali Mireles MD Mar 16, 2017 14:24
== END 2017-03-15 16:11 | disposition home health service (06) | DRG 190 ==
LOC: NEPC 20:28 → NEDA 03-13 00:35 → INTOOBSV 03-13 00:35 → NEPHCDU 03-13 03:29 → OBSVTOIN 03-14 10:01 → HCIN 03-14 17:48
PROVIDERS: ADMIT Hospitalist; ATTEND Hospitalist
DX: J44.1 Chronic obstructive pulmonary disease with (acute) exacerbation (principal); J96.01 Acute respiratory failure with hypoxia; N17.9 Acute kidney failure, unspecified; F17.210 Nicotine dependence, cigarettes, uncomplicated; Z91.14 Patient's other noncompliance with medication regimen; E03.9 Hypothyroidism, unspecified; Z23 Encounter for immunization
CPT/HCPCS: 71010; 71275; 76937; 80048; 80053; 81001; 82550; 82552; 83735; 83880; 84443; 84484; 85007; 85025; 85027; 85379; 87086; 90732; 93005; 94640; 94664; 96361; 96374; G0378; J1650; J2920; J2930; J7030; J7040; Q9967

== ENCOUNTER 2017-12-23 16:00 | Emergency (ER) | payer MEDICAID ==
[~2017-12-23 16:00] MED LIST changes: +ALBUAER3 INH; +IPRASOL INH; -LEVO.125 PO; +NEBULIZER1 MI1; -NICO14T TD; -OXYC1SOL5 PO; +OXYGENTANK NAS.CANULA; +PRED10PA PO; -[UNRECOGNIZED DRUG - OTHER]
[2017-12-23 16:11] VITALS: BP 159/83; PULSE 88; RESP 14; TEMP 98.9; O2SAT 93
[2017-12-23] MEDS ORDERED: KETOROLAC TROMETHAMINE 30 MG/ML (IVP) VIAL IV PUSH ONE (16:15)
[2017-12-23 16:16] VITALS: O2SAT 92
--- NOTE | 2017-12-23 16:17 | PD ---
HPI Chief Complaint: Pain: Acute or Chronic Time Seen by Provider: 16:02 Travel History International Travel<30 days: No Contact w/Intl Traveler<30days: No History of Present Illness HPI 52-year-old female presents with low back pain that is been bothering her over the past couple of days. She states that she has also had dark urine. She states she went to [facility] yesterday and had an x-ray in a couple of shots and is not feel better. She denies any other concurrent complaints. Quality pain is sharp. Severity is severe. She presents by ambulance. She denies other concurrent complaints including weakness, fever or other acute concerns. She denies any trauma. PFSH Past Medical History Hx Anticoagulant Therapy: Yes (ASPIRIN) Arthritis: Yes Cancer: No Cardiovascular Problems: No Congestive Heart Failure: Yes COPD: Yes Coronary Artery Disease: No Diabetes: No Diminished Hearing: No Endocrine: No Genitourinary: No Immune Disorder: No Musculoskeletal: No Neurologic: No Psychiatric: No Reproductive: No Respiratory: Yes Thyroid Disease: No Menopausal: Yes Past Surgical History Abdominal Surgery: No Cardiac Surgery: No Ear Surgery: No Endocrine Surgery: No Eye Surgery: No Genitourinary Surgery: No Gynecologic Surgery: No Oral Surgery: No Pacemaker: No Thoracic Surgery: No Other Surgery: Yes Social History Alcohol Use: No Tobacco Use: Yes (1/2 PACK PPD SINCE 14 YEARS OLD) Substance Use: No Allergies-Medications (Allergen,Severity, Reaction): Coded Allergies: No Known Allergies (Verified Adverse Reaction, Unknown, 12/23/17) Reported Meds & Prescriptions Reported Meds & Active Scripts Active Skelaxin (Metaxalone) 800 Mg Tablet 800 Mg PO HS PRN Keflex (Cephalexin) 500 Mg Cap 500 Mg PO Q12H 10 Days Oxygen tank (Oxygen) 1 Ea Tank 2 Liter JORGE.CANULA CONTINUOUS Oxygen Concentrator Portable Gaseous 2 L/min via Nasal Cannula Continuous For 99 months Nebulizer 1 Mis Mis 1 Ea .ROUTE DIRECTED Duoneb (Ipratropium-Albuterol Neb) 0.5-2.5 Mg/3 Ml Neb 1 Nebule INH Q6HR NEB Proair Hfa 8.5 GM Inh (Albuterol Sulfate) 90 Mcg/Act Aer 2 Puff INH Q4-6H PRN 108 mcg/actuation Review of Systems Except as stated in HPI: all other systems reviewed are Neg Physical Exam Narrative GENERAL: 52-year-old female who appears uncomfortable SKIN: Focused skin assessment warm/dry. HEAD: Atraumatic. Normocephalic. EYES: Pupils equal and round. No scleral icterus. No injection or drainage. ENT: No nasal bleeding or discharge. Mucous membranes pink and moist. NECK: Trachea midline. No JVD. CARDIOVASCULAR: Regular rate and rhythm. No murmur appreciated. RESPIRATORY: No accessory muscle use. Clear to auscultation. Breath sounds equal bilaterally. GASTROINTESTINAL: Abdomen soft, non-tender, nondistended. Hepatic and splenic margins not palpable. MUSCULOSKELETAL: No obvious deformities. Tender to bilateral lumbar paraspinal area, no step-off, no CVA tenderness NEUROLOGICAL: Awake and alert. No obvious cranial nerve deficits. Motor grossly within normal limits. Normal speech. PSYCHIATRIC: Appropriate mood and affect; insight and judgment normal. Data Data Last Documented VS Vital Signs Date Time Temp Pulse Resp B/P (MAP) Pulse Ox O2 Delivery O2 Flow Rate FiO2 12/23/17 18:28 76 14 168/95 (119) 99 Nasal Cannula 2.00 12/23/17 16:11 98.9 Orders Orders Complete Blood Count With Diff (12/23/17 16:09) Comprehensive Metabolic Panel (12/23/17 16:09) Urinalysis - C+S If Indicated (12/23/17 16:09) Lipase (12/23/17 16:09) Ct Abd/Pel W/O Iv Contrast (12/23/17 ) Iv Access Insert/Monitor (12/23/17 16:09) Oximetry (12/23/17 16:09) Ketorolac Inj (Toradol Inj) (12/23/17 16:15) Chest, Single Ap (12/23/17 ) Ketorolac Inj (Toradol Inj) (12/23/17 17:45) Urine Culture (12/23/17 18:06) Lidocaine 1% Inj (50 Ml) (Xylocaine 1% I (12/23/17 18:45) Ceftriaxone Inj (Rocephin Inj) (12/23/17 18:45) Ed Discharge Order (12/23/17 18:47) Labs Laboratory Tests Test 12/23/17 17:40 12/23/17 18:06 White Blood Count 10.5 TH/MM3 Red Blood Count 3.91 MIL/MM3 Hemoglobin 12.6 GM/DL Hematocrit 36.8 % Mean Corpuscular Volume 94.1 FL Mean Corpuscular Hemoglobin 32.2 PG Mean Corpuscular Hemoglobin Concent 34.2 % Red Cell Distribution Width 14.0 % Platelet Count 330 TH/MM3 Mean Platelet Volume 8.5 FL Neutrophils (%) (Auto) 64.9 % Lymphocytes (%) (Auto) 23.6 % Monocytes (%) (Auto) 8.1 % Eosinophils (%) (Auto) 1.7 % Basophils (%) (Auto) 1.7 % Neutrophils # (Auto) 6.8 TH/MM3 Lymphocytes # (Auto) 2.5 TH/MM3 Monocytes # (Auto) 0.8 TH/MM3 Eosinophils # (Auto) 0.2 TH/MM3 Basophils # (Auto) 0.2 TH/MM3 CBC Comment AUTO DIFF Differential Comment AUTO DIFF CONFIRMED Platelet Estimate NORMAL Platelet Morphology Comment NORMAL Blood Urea Nitrogen 15 MG/DL Creatinine 0.69 MG/DL Random Glucose 115 MG/DL Total Protein 6.8 GM/DL Albumin 3.1 GM/DL Calcium Level 9.2 MG/DL Alkaline Phosphatase 69 U/L Aspartate Amino Transf (AST/SGOT) 13 U/L Alanine Aminotransferase (ALT/SGPT) 21 U/L Total Bilirubin 0.1 MG/DL Sodium Level 140 MEQ/L Potassium Level 4.0 MEQ/L Chloride Level 105 MEQ/L Carbon Dioxide Level 31.1 MEQ/L Anion Gap 4 MEQ/L Estimat Glomerular Filtration Rate 89 ML/MIN Lipase 87 U/L Urine Color YELLOW Urine Turbidity HAZY Urine pH 6.0 Urine Specific [place] 1.032 Urine Protein 30 mg/dL Urine Glucose (UA) NEG mg/dL Urine Ketones NEG mg/dL Urine Occult Blood NEG Urine Nitrite NEG Urine Bilirubin NEG Urine Urobilinogen LESS THAN 2.0 MG/DL Urine Leukocyte Esterase LARGE Urine RBC 2 /hpf Urine WBC 15 /hpf Urine Squamous Epithelial Cells 9 /hpf Urine Amorphous Sediment RARE Urine Bacteria RARE /hpf Urine Mucus FEW /lpf Microscopic Urinalysis Comment CULTURE INDICATED MDM Medical Decision Making Medical Screen Exam Complete: Yes Emergency Medical Condition: Yes Medical Record Reviewed: Yes (Past history confirmed) Interpretation(s) Last 24 hours Impressions Chest X-Ray 12/23/17 0000 Signed Impressions: Service Date/Time: Saturday, December 23, 2017 16:28 - CONCLUSION: No acute cardiopulmonary disease. Dion Centeno MD Abdomen/Pelvis CT 12/23/17 0000 Signed Impressions: Service Date/Time: Saturday, December 23, 2017 17:02 - CONCLUSION: Chronic vascular calcifications, right renal cyst and probable bone island left iliac bone. Dion Centeno MD CBC & BMP Diagram 12/23/17 17:40 Albumin 3.1 L, Calcium Level 9.2, Aspartate Amino Transf (AST/SGOT) 13 L, Alanine Aminotransferase (ALT/SGPT) 21 Differential Diagnosis Kidney stone, UTI, musculoskeletal Narrative Course We will check blood work, urinalysis, CT scan abdominal pelvis and dose with Toradol and reevaluate ed workup with uti, Patient denies any new complaints and states that they are feeling better. Patient happy with care, all questions answered. Patient knows that follow up is incumbent on them and to return to the emergency room immediately if new or worsening symptoms develop. Patient given strict return precautions, vitals reviewed and are normal, agrees to further workup as an outpatient. Diagnosis Primary Impression: Back pain Qualified Codes: M54.9 - Dorsalgia, unspecified Additional Impression: UTI (urinary tract infection) Qualified Codes: N39.0 - Urinary tract infection, site not specified Patient Instructions: General Instructions Additional Instructions: return as needed, tylenol as needed, follow with primary this week Med/Other Pt SpecificInfo: Prescription(s) given Scripts Metaxalone (Skelaxin) 800 Mg Tablet 800 MG PO HS Y for PAIN SCALE 1 TO 10, #10 Prov: Colleen Kuhn MD 12/23/17 Cephalexin (Keflex) 500 Mg Cap 500 MG PO Q12H for Infection for 10 Days, #20 CAP 0 Refills Prov: Colleen Kuhn MD 12/23/17 Disposition: DISCHARGE HOME Condition: Stable Colleen Kuhn MD Dec 23, 2017 16:17
--- NOTE | 2017-12-23 16:48 | RADRPT ---
EXAM DATE/TIME: 12/23/2017 16:28 [facility] COMPARISON: CHEST SINGLE AP, February 05, 2015, 16:22. INDICATIONS : Chest pain and lower back pain. MEDICAL HISTORY : None. SURGICAL HISTORY : None. ENCOUNTER: Initial ACUITY: 1 day PAIN SCORE: 5/10 LOCATION: Bilateral chest FINDINGS: The lungs are clear without infiltrate, nodule, or mass. There is no appreciable pleural effusion fo r technique. Heart and mediastinum are unremarkable. There are post surgical changes in the right pr oximal humerus. CONCLUSION: No acute cardiopulmonary disease. Dion Centeno MD on December 23, 2017 at 16:45 Board Certified Radiologist. This report was verified electronically.
--- NOTE | 2017-12-23 17:34 | RADRPT ---
EXAM DATE/TIME: 12/23/2017 17:02 [facility] COMPARISON: No previous studies available for comparison. INDICATIONS : Right flank and back pain. ORAL CONTRAST: No oral contrast ingested. RADIATION DOSE: 16.69 CTDIvol (mGy) MEDICAL HISTORY : Congestive heart failure. Hypertension. SURGICAL HISTORY : None. ENCOUNTER: Initial ACUITY: 1 day PAIN SCALE: 10/10 LOCATION: Right flank TECHNIQUE: Volumetric scanning of the abdomen and pelvis was performed. Using automated exposure control and ad justment of the mA and/or kV according to patient size, radiation dose was kept as low as reasonably achievable to obtain optimal diagnostic quality images. DICOM format image data is available electro nically for review and comparison. FINDINGS: CT Abdomen: The visualized liver, spleen, pancreas, left kidney, adrenals are unremarkable. There is no evidence for any stones in the kidneys or the course of the ureters on either side. There is no hy dronephrosis. Chronic vascular calcifications are present involving the aorta, iliac arteries without any significant stenosis or aneurysmal dilatations for technique.There is no evidence for any apprec iable pathological adenopathy, free fluid, or bowel obstruction. Approximate 2.3 cm simple cyst is pr esent a right lower pole kidney. CT pelvis: There is no evidence for mass, abscess formation, or any significant adenopathy within the pelvis. Almost 1 cm bone island is seen in left iliac bone. CONCLUSION: Chronic vascular calcifications, right renal cyst and probable bone island left iliac bone. Dion Centeno MD on December 23, 2017 at 17:27 Board Certified Radiologist. This report was verified electronically.
[2017-12-23] MEDS ORDERED: KETOROLAC TROMETHAMINE 60 MG/2 ML (IM) VIAL IM ONE (17:45)
[2017-12-23 18:02] LABS: AUTOMATED NEUTROPHIL # 6.8 TH/MM3 (1.8-7.7); BASOPHIL # 0.2 TH/MM3 (0-0.2); BASOPHIL % 1.7 % (0.0-2.0); EOSINOPHIL # 0.2 TH/MM3 (0-0.4); EOSINOPHIL % 1.7 % (0.0-4.0); HEMATOCRIT 36.8 % (35.0-46.0); HEMOGLOBIN 12.6 GM/DL (11.6-15.3); LYMPH % 23.6 % (9.0-44.0); LYMPHOCYTE # 2.5 TH/MM3 (1.0-4.8); MEAN CELL VOLUME 94.1 FL (80.0-100.0); MEAN CORPUSCULAR HEMOGLOBIN 32.2 PG (27.0-34.0); MEAN CORPUSCULAR HGB CONC 34.2 % (32.0-36.0); MEAN PLATELET VOLUME 8.5 FL (7.0-11.0); MONO % 8.1 % (0.0-8.0); MONOCYTE # 0.8 TH/MM3 (0-0.9); NEUT % 64.9 % (16.0-70.0); PLATELET COUNT 330 TH/MM3 (150-450); RED BLOOD COUNT 3.91 MIL/MM3 (4.00-5.30); WHITE BLOOD COUNT 10.5 TH/MM3 (4.0-11.0)
[2017-12-23 18:28] VITALS: BP 168/95; PULSE 76; RESP 14; O2SAT 99
[2017-12-23 18:29] LABS: AMORPHOUS SEDIMENT, URINE RARE; BACTERIA, URINE RARE /hpf; BILIRUBIN, URINE NEG (NEG); BLOOD, URINE NEG (NEG); GLUCOSE,URINE NEG (NEG); KETONE, URINE NEG (NEG); MUCUS URINE FEW /lpf (OCC); NITRITE,URINE NEG (NEG); SQUAMOUS EPITHELIAL CELL URINE 9 /hpf (0-5); URINE COLOR YELLOW (YELLW/STRAW); URINE LEUKOCYTE ESTERASE LARGE (NEG)
[2017-12-23] MEDS ORDERED: META800 PO (18:43)
[2017-12-23] MEDS ORDERED: CEPH-460 PO (18:43)
[2017-12-23 18:44] LABS: ALBUMIN 3.1 GM/DL (3.4-5.0); AST (GOT) 13 U/L (15-37); BICARBONATE 31.1 MEQ/L (21.0-32.0); BLOOD UREA NITROGEN 15 MG/DL (7-18); CALCIUM 9.2 MG/DL (8.5-10.1); CHLORIDE 105 MEQ/L (98-107); CREATININE 0.69 MG/DL (0.50-1.00); GLOMERULAR FILTRATION RATE 89 ML/MIN (>89); GLUCOSE,RANDOM 115 MG/DL (74-106); SODIUM (NA) 140 MEQ/L (136-145)
[2017-12-23 18:45] LABS: ALT (GPT) 21 U/L (10-53)
[2017-12-23] MEDS ORDERED: LIDOCAINE HCL 1% 50 ML VIAL IM ONE (18:45)
[2017-12-23 18:47] LABS: ALKALINE PHOSPHATASE 69 U/L (45-117); TOTAL BILIRUBIN ADULT 0.1 MG/DL (0.2-1.0); TOTAL PROTEIN 6.8 GM/DL (6.4-8.2)
[2017-12-23] MEDS ORDERED: LIDOCAINE HCL 1% PF 30 ML VIAL OTHER ONE (19:15)
== END 2017-12-23 20:03 | disposition home or self-care (01) ==
LOC: NEPC 16:00
DX: M54.9 Dorsalgia, unspecified (principal); N39.0 Urinary tract infection, site not specified; N28.1 Cyst of kidney, acquired; M19.90 Unspecified osteoarthritis, unspecified site; I50.9 Heart failure, unspecified; J44.9 Chronic obstructive pulmonary disease, unspecified; F17.200 Nicotine dependence, unspecified, uncomplicated; Z79.899 Other long term (current) drug therapy
CPT/HCPCS: 71045; 74176; 80053; 81001; 83690; 85025; 87086; 96372; 99285; J0696; J1885